=== PATIENT | female | born 1955 | race Caucasian/White ===

== ENCOUNTER 2018-07-26 00:40 | Observation (INO) | payer BC, OTHER ==
[~2018-07-26] VITALS: Ht 177.8 cm; Wt 111.1 kg
[~2018-07-26 00:40] MED LIST: DYA PO; GABA-492 PO; METO-259 PO; SIM10 PO; VALS160T20 PO
--- NOTE | 2018-07-26 00:48 | ER Report ---
History and Physical Time Seen By MD: 00:46 Hx. of Stated Complaint: around 2300 the patient started feeling SOB and states that her heart was fluttering an wont stop HPI/ROS CHIEF COMPLAINT: short of breath HISTORY OF PRESENT ILLNESS: This is a 62 year old female. She had shortness of breath start suddenly about 2330 hours. Heart racing and feeling like it is fluttering. Denies chest pain, but feels tight. Never had this in the past. No history of arrhythmias in the past. Has been told some mild valve reflux in dc st, but last echo said that there was no reflux. No lung problems. Has not been sick recently, no fevers or cough. No nausea or vomiting. Allergies: Coded Allergies: codeine (Verified Allergy, Mild, neurologic changes, amnesia, 01/02/11) Home Meds Active Scripts Pravastatin Sodium (PRAVACHOL) 20 Mg Tablet, 40 MG PO HS, #60 TAB Prov:NATHALIE ROBERTSON MD 07/26/18 Diltiazem Hcl (DILTIAZEM ER) 180 Mg Cap.er.deg, 180 MG PO DAILY, #30 Prov:NATHALIE ROBERTSON MD 07/26/18 Apixaban (ELIQUIS) 2.5 Mg Tablet, 5 MG PO BID, #60 Prov:NATHALIE ROBERTSON MD 07/26/18 Reported Medications Losartan Potassium (LOSARTAN POTASSIUM) 100 Mg Tablet, 100 MG PO HS 07/26/18 Multivitamin/Iron/Folic Acid (Centrum Adults Tablet) 18 Mg Iron-400 Mcg Tablet 07/26/18 Calcium Carb/Mag Ox/Zinc Sulf (Egjadas-Umzwisznk-Fbcl Tablet) 1 Each Tablet 07/26/18 Ubidecarenone (COQ-10) 100 Mg Capsule, 100 MG PO, CAPSULE 07/26/18 Triamterene/Hydrochlorothiazid (TRIAMTERENE-HCTZ 37.5-25 MG CP) 1 Each Capsule, 1 EACH PO, CAPSULE 07/26/18 Gabapentin (GABAPENTIN) 300 Mg Capsule, 100 MG PO TID, CAPSULE 07/26/18 Omeprazole (OMEPRAZOLE) 40 Mg Capsule.dr, 40 MG PO QDAY, CAP 07/26/18 Metformin Hcl (METFORMIN HCL) 500 Mg Tablet, 1 TAB PO BID, TAB 07/26/18 Discontinued Reported Medications Aspirin (ASPIRIN) 81 Mg Tab.chew, 81 MG PO QDAY, TAB.CHEW 07/26/18 Amlodipine Besylate (AMLODIPINE BESYLATE) 5 Mg Tablet, 1 TAB PO QDAY, TAB 07/26/18 Simvastatin (SIMVASTATIN) 20 Mg Tablet, 20 MG PO HS, TAB 07/26/18 Metoprolol Succinate (Metoprolol Succinate) 50 Mg Tab.sr.24h, 25 MG PO BID, #30 0 Refills 01/02/11 Triamterene/Hctz (Dyazide 37.5-25 Mg) 1 Ea Cap, 1 TAB PO DAILY, 0 Refills 01/02/11 Gabapentin (Neurontin) 400 Mg Capsule, 200 MG PO, 0 Refills 01/02/11 Valsartan (Diovan) 160 Mg Tablet, 0 PO, 0 Refills 01/02/11 Simvastatin (Zocor) 10 Mg Tab, 10 MG PO QHS, 0 Refills 01/02/11 Reviewed Nurses Notes: Yes Hx Smoking: No Hx Substance Use Disorder: No Hx Alcohol Use: No Constitutional Vital Sign - Last 24 Hours 07/26/18 07/26/18 07/26/18 07/26/18 00:40 00:41 00:42 01:00 Temp 98.5 Pulse ??? 127 Resp 20 B/P (MAP) 200/121 (147) 200/121 179/116 (137) Pulse Ox 94 O2 Delivery Room Air 07/26/18 07/26/18 07/26/18 07/26/18 01:10 01:30 01:40 02:00 Pulse 150 130 Resp 7 13 B/P (MAP) 139/74 (95) 122/82 (95) Pulse Ox 87 92 07/26/18 07/26/18 07/26/18 07/26/18 02:10 02:30 02:40 03:00 Pulse 138 121 Resp 12 16 B/P (MAP) 117/84 (95) 122/94 (103) Pulse Ox 93 93 07/26/18 07/26/18 03:10 03:15 Pulse 125 124 Resp 16 10 Pulse Ox 91 95 Intake and Output 07/25/18 07/25/18 07/26/18 15:01 23:01 07:01 Intake Total 1000 ml Balance 1000 ml Physical Exam General Appearance: The patient is alert. Very anxious and distress from symptoms. Eyes: Pupils are equal, round. No pallor, injection or icterus. ENT: Mucous membranes are moist. Normal oral mucosa. Posterior oropharynx is normal. Neck: Supple and non tender. Respiratory: Lungs are clear to auscultation. Tachypnea. Cardiovascular: Tachycardia at about 160-190s, does have irregularity. No murmurs, gallops or rubs. Normal capillary refill. Has bilateral ankle edema, stated as chronic. Gastrointestinal: Abdomen is soft and non tender. Nondistended. Normal active bowel sounds. Neurological: Alert and oriented x3. Skin: Warm and dry. DIFFERENTIAL DIAGNOSIS: After history and physical exam, differential diagnosis was considered for what appears to be new onset of either atrial fibrillation, SVT or atrial flutter. Will need to also look at potential causes of the new rhythm. Medical Decision Making Data Points Result Diagram: 07/26/18 0100 07/26/18 0708 Laboratory Hematology Test 07/26/18 01:00 Red Blood Count 5.29 M/uL (4.17-5.56) Mean Corpuscular Volume 84.5 fL (80.0-96.0) Mean Corpuscular Hemoglobin 28.3 pg (26.0-33.0) Mean Corpuscular Hemoglobin Concent 33.5 g/dL (32.0-36.0) Red Cell Distribution Width 14.2 % (11.5-14.5) Mean Platelet Volume 9.2 fL (7.2-11.1) Neutrophils (%) (Auto) 69.4 % (39.4-72.5) Lymphocytes (%) (Auto) 22.9 % (17.6-49.6) Monocytes (%) (Auto) 5.4 % (4.1-12.4) Eosinophils (%) (Auto) 1.5 % (0.4-6.7) Basophils (%) (Auto) 0.8 % (0.3-1.4) Nucleated RBC Relative Count (auto) 0.0 /100WBC Neutrophils # (Auto) 8.0 K/uL (2.0-7.4) Lymphocytes # (Auto) 2.7 K/uL (1.3-3.6) Monocytes # (Auto) 0.6 K/uL (0.3-1.0) Eosinophils # (Auto) 0.2 K/uL (0.0-0.5) Basophils # (Auto) 0.1 K/uL (0.0-0.1) Nucleated RBC Absolute Count (auto) 0.01 K/uL D-Dimer Quantitative (PE/DVT) 0.44 ug/ml (0-0.50) Magnesium Level 1.7 mg/dl (1.7-2.2) Total Bilirubin 0.4 mg/dl (0.2-1.3) Aspartate Amino Transf (AST/SGOT) 25 U/L (0-35) Alanine Aminotransferase (ALT/SGPT) 37 U/L (0-56) Alkaline Phosphatase 137 U/L (0-126) Troponin I 0.022 ng/ml Total Protein 8.1 g/dl (6.3-8.2) Albumin 4.6 g/dl (3.5-5.0) Chemistry Test 07/26/18 01:00 White Blood Count 11.6 k/uL (4.5-11.0) Red Blood Count 5.29 M/uL (4.17-5.56) Hemoglobin 15.0 g/dL (12.0-16.0) Hematocrit 44.7 % (34.0-47.0) Mean Corpuscular Volume 84.5 fL (80.0-96.0) Mean Corpuscular Hemoglobin 28.3 pg (26.0-33.0) Mean Corpuscular Hemoglobin Concent 33.5 g/dL (32.0-36.0) Red Cell Distribution Width 14.2 % (11.5-14.5) Platelet Count 221 K/uL (150-450) Mean Platelet Volume 9.2 fL (7.2-11.1) Neutrophils (%) (Auto) 69.4 % (39.4-72.5) Lymphocytes (%) (Auto) 22.9 % (17.6-49.6) Monocytes (%) (Auto) 5.4 % (4.1-12.4) Eosinophils (%) (Auto) 1.5 % (0.4-6.7) Basophils (%) (Auto) 0.8 % (0.3-1.4) Nucleated RBC Relative Count (auto) 0.0 /100WBC Neutrophils # (Auto) 8.0 K/uL (2.0-7.4) Lymphocytes # (Auto) 2.7 K/uL (1.3-3.6) Monocytes # (Auto) 0.6 K/uL (0.3-1.0) Eosinophils # (Auto) 0.2 K/uL (0.0-0.5) Basophils # (Auto) 0.1 K/uL (0.0-0.1) Nucleated RBC Absolute Count (auto) 0.01 K/uL D-Dimer Quantitative (PE/DVT) 0.44 ug/ml (0-0.50) Magnesium Level 1.7 mg/dl (1.7-2.2) Total Bilirubin 0.4 mg/dl (0.2-1.3) Aspartate Amino Transf (AST/SGOT) 25 U/L (0-35) Alanine Aminotransferase (ALT/SGPT) 37 U/L (0-56) Alkaline Phosphatase 137 U/L (0-126) Troponin I 0.022 ng/ml Total Protein 8.1 g/dl (6.3-8.2) Albumin 4.6 g/dl (3.5-5.0) Coagulation Test 07/26/18 01:00 D-Dimer Quantitative (PE/DVT) 0.44 ug/ml EKG/Imaging EKG Interpretation 12 lead EKG: Rhythm: Appears to be atrial fibrillation, rate 157 Imaging PORTABLE CHEST: Indication: Hypertension and dyspnea. Technique: A single frontal film was obtained. Comparison: None available. Skeletal and soft tissue structures: Intact and unremarkable. Heart and mediastinum: Within normal limits for portable technique. Lung rodriguez: Well-expanded and clear. No focal opacities. No vascular congestion. Pleural spaces: Unremarkable. Impression: No acute findings. Report Dictated By: Faustino Jaffe MD at 07/26/2018 1:43 AM ED Course/Re-evaluation Clinical Indication for ER IV: Hydration, IV Access ED Course After initial evaluation, adenosine 6 mg IV push was done to rule out SVT. She had a positive in the rhythm which then went back into a rapid ventricular rate and it is atrial fibrillation. Started diltiazem 25 mg IV push, heart rate came down to the 1:30 to 160 range. Then started to speed back up. Gave a second dose 20 mg IV push with the same results. Blood pressure has improved significantly. Patient is now much less short of breath. Troponin is negative. D-dimer is negative. Mild decrease in potassium at 3.2 but otherwise labs are unremarkable. Chest the case with our hospitalist, Dr. Pradhan, who accepted the patient for admission. Lovenox 100mg subcutaneous was given. Decision to Disposition Date: Jul 26, 2018 Decision to Disposition Time: 03:16 Depart Departure Latest Vital Signs Vital Signs Date Time Temp Pulse Resp B/P (MAP) Pulse Ox O2 Delivery O2 Flow Rate FiO2 07/26/18 03:15 124 10 95 07/26/18 03:00 122/94 (103) 07/26/18 00:42 98.5 Room Air Impression: Primary Impression: Atrial fibrillation with rapid ventricular response Condition: Condition Unchanged Disposition: Admitted from ER New Scripts Pravastatin Sodium (PRAVACHOL) 20 Mg Tablet 40 MG PO HS, #60 TAB Prov: NATHALIE ROBERTSON MD 07/26/18 Diltiazem Hcl (DILTIAZEM ER) 180 Mg Cap.er.deg 180 MG PO DAILY, #30 Prov: NATHALIE ROBERTSON MD 07/26/18 Apixaban (ELIQUIS) 2.5 Mg Tablet 5 MG PO BID, #60 Prov: NATHALIE ORBERTSON MD 07/26/18 [facility] Jul 26, 2018 00:48
[2018-07-26] MEDS ORDERED: OMEP40CA48 PO (00:54)
[2018-07-26] MEDS ORDERED: GABA-549 PO (00:54)
[2018-07-26] MEDS ORDERED: METF-450 PO (00:54)
[2018-07-26] MEDS ORDERED: CALC-52 (00:55)
[2018-07-26] MEDS ORDERED: LOSA100T75 PO (00:55)
[2018-07-26] MEDS ORDERED: ADENOSINE(*)IV SOLN 3MG/ML IVP ONE ×2 (00:55)
[2018-07-26] MEDS ORDERED: SIMV-49 PO (00:55)
[2018-07-26] MEDS ORDERED: ASPI81TA94 PO (00:55)
[2018-07-26] MEDS ORDERED: TRIA1CAP85 PO (00:55)
[2018-07-26] MEDS ORDERED: NS(*) 0.9% 1000 ML BAG 1,000 ML IV ONE (00:55)
[2018-07-26] MEDS ORDERED: UBID100C48 PO (00:55)
[2018-07-26] MEDS ORDERED: AMLO-125 PO (00:55)
[2018-07-26] MEDS ORDERED: MULT-67 (00:55)
--- NOTE | 2018-07-26 01:05 | EKG ---
FACILITY: [facility] PATIENT NAME: RODRIGUE NEWMAN : [id number] MR: [id number] V: [id number] EXAM DATE: ORDERING PHYSICIAN: DAWIT EDWARDS TECHNOLOGIST: NEERAJ Olmstead Reason : CARDIAC Blood Pressure : / mmHG Vent. Rate : 157 BPM Atrial Rate : 170 BPM P-R Int : 000 ms QRS Dur : 084 ms QT Int : 284 ms P-R-T Axes : 000 004 113 degrees QTc Int : 459 ms Atrial fibrillation No previous ECGs available Confirmed by Zach Nova ([id number]) on 07/26/2018 7:25:26 AM Referred By: Confirmed By:Zach Escobedo
[2018-07-26] MEDS ORDERED: DILTIAZEM 5 MG/ML 5ML IVPUSH IVP ONE ×2 (01:10→02:00)
[2018-07-26 01:21] LABS: PLATELET COUNT, AUTOMATED 221 K/uL (150-450)
--- NOTE | 2018-07-26 01:52 | RADIOLOGY IMAGING REPORT ---
FACILITY: [facility] [place] PATIENT NAME: Giuliana Delacruz : 1955 MR: [id number] V: [id number] EXAM DATE: ORDERING PHYSICIAN: DAWIT EDWARDS TECHNOLOGIST: Location: [facility] [place] Patient: Giuliana Delacruz : 1955 Visit/Account:[id number] Date of Sevice: 07/26/2018 PORTABLE CHEST: Indication: Hypertension and dyspnea. Technique: A single frontal film was obtained. Comparison: None available. Skeletal and soft tissue structures: Intact and unremarkable. Heart and mediastinum: Within normal limits for portable technique. Lung rodriguez: Well-expanded and clear. No focal opacities. No vascular congestion. Pleural spaces: Unremarkable. Impression: No acute findings. Report Dictated By: Faustino Jaffe MD at 07/26/2018 1:43 AM Report E-Signed By: Faustino Jaffe MD at 07/26/2018 1:46 AM WSN:[id number]
--- NOTE | 2018-07-26 02:24 | EKG ---
FACILITY: [facility] [place] PATIENT NAME: RODRIGUE NEWMAN : [id number] MR: [id number] V: [id number] EXAM DATE: ORDERING PHYSICIAN: DAWIT EDWARDS TECHNOLOGIST: NEERAJ Olmstead Reason : REPEAT EKG Blood Pressure : / mmHG Vent. Rate : 134 BPM Atrial Rate : 129 BPM P-R Int : 000 ms QRS Dur : 082 ms QT Int : 306 ms P-R-T Axes : 000 006 089 degrees QTc Int : 456 ms Atrial fibrillation When compared with ECG of 26-JUL-2018 00:54, No significant change was found Confirmed by Zach Nova ([id number]) on 07/26/2018 7:25:37 AM Referred By: Confirmed By:Zach Escobedo
[2018-07-26] MEDS ORDERED: ENOXAPARIN 100 MG/ML SYR SC ONE (03:15)
[2018-07-26 04:15] VITALS: BP 153/108
[2018-07-26] MEDS ORDERED: FLUSH 10 ML SYR IVP PRN (04:35)
[2018-07-26] MEDS ORDERED: ACETAMINOPHEN 325 MG TAB PO PRN (04:35)
[2018-07-26 05:00] VITALS: BP 132/77
--- NOTE | 2018-07-26 05:01 | History & Physical ---
History of Present Illness Chief Complaint SOB, palpitations History of Present Illness 62F presented with SOB and palpitations. PMHx significant for HTN, FAITH. Reports 12-1am had palpitations and increased SOB on waking. She does have FAITH and is treated with CPAP. [place] visiting form [place], [place] was [place] with palpitations and PVC's. Found to be in afib with RVR, some slowing with diltiazem but remained in 160's. She is hypoxic on 3L. BP stable. Planned admission to ICU for rate control; however, she converted to NSR on arrival in unit. Will admit to Med/Surg for observation and weaning of O2. History Problems: (1) Palpitations Status: Chronic Home Meds Reported Medications Losartan Potassium (LOSARTAN POTASSIUM) 100 Mg Tablet, 100 MG PO QDAY 07/26/18 Aspirin (ASPIRIN) 81 Mg Tab.chew, 81 MG PO QDAY, TAB.CHEW 07/26/18 Multivitamin/Iron/Folic Acid (Centrum Adults Tablet) 18 Mg Iron-400 Mcg Tablet 07/26/18 Calcium Carb/Mag Ox/Zinc Sulf (Oeeffde-Cksflcfdo-Bizk Tablet) 1 Each Tablet 07/26/18 Ubidecarenone (COQ-10) 100 Mg Capsule, 100 MG PO, CAPSULE 07/26/18 Triamterene/Hydrochlorothiazid (TRIAMTERENE-HCTZ 37.5-25 MG CP) 1 Each Capsule, 1 EACH PO, CAPSULE 07/26/18 Amlodipine Besylate (AMLODIPINE BESYLATE) 5 Mg Tablet, 1 TAB PO QDAY, TAB 07/26/18 Simvastatin (SIMVASTATIN) 20 Mg Tablet, 20 MG PO HS, TAB 07/26/18 Gabapentin (GABAPENTIN) 300 Mg Capsule, 100 MG PO TID, CAPSULE 07/26/18 Omeprazole (OMEPRAZOLE) 40 Mg Capsule.dr, 40 MG PO QDAY, CAP 07/26/18 Metformin Hcl (METFORMIN HCL) 500 Mg Tablet, 1 TAB PO BID, TAB 07/26/18 Discontinued Reported Medications Metoprolol Succinate (Metoprolol Succinate) 50 Mg Tab.sr.24h, 25 MG PO BID, #30 0 Refills 01/02/11 Triamterene/Hctz (Dyazide 37.5-25 Mg) 1 Ea Cap, 1 TAB PO DAILY, 0 Refills 01/02/11 Gabapentin (Neurontin) 400 Mg Capsule, 200 MG PO, 0 Refills 01/02/11 Valsartan (Diovan) 160 Mg Tablet, 0 PO, 0 Refills 01/02/11 Simvastatin (Zocor) 10 Mg Tab, 10 MG PO QHS, 0 Refills 01/02/11 Allergies: Coded Allergies: Codeine (Verified Allergy, Mild, neurologic changes, amnesia, 01/02/11) Hx Smoking: No Caffeine Intake: Coffee Caffeine/Cups Per Day: 2cpd Hx Alcohol Use: Yes (rarely) Hx Substance Use Disorder: No Review of Systems Cardiovascular: Palpitations; No Chest Pain Gastrointestinal: No Nausea, No Vomiting Exam Vital Signs Vital Signs Date Time Temp Pulse Resp B/P (MAP) Pulse Ox O2 Delivery O2 Flow Rate FiO2 07/26/18 04:15 94 Nasal Cannula 2.0 07/26/18 04:15 98.7 86 16 153/108 (123) General Appearance: Alert, Awake, No Acute Distress Neuro: No Gross deficits Cardiovascular: Other (irregularly irregular, converted to RRR) Respiratory: Clear to Auscultation (on 2L supplemental O2) GI: Abd Soft and Non-Tender Musculoskeletal: No Weakness/Pain Extremities: Soft and Non Tender, Warm, Pulses, Perfused Integumentary: Skin Intact without Lesion / Mass Medical Decision Making Data Points Result Diagram: 07/26/18 0100 07/26/18 0100 EKG / Imaging EKG Interpretation afib with RVR Monitor Interpretation: Normal Sinus Rhythm Assessment and Plan Problems: (1) Atrial fibrillation with rapid ventricular response Status: Acute Assessment & Plan: Converted with IV diltiazem on arrival to unit. Will begin PO diltiazem, recommend recheck by PCP when gets home may be able to stop diltiazem if still NSR. (2) Hypoxia Assessment & Plan: Needing 2L suspect she is mildly hypoxic at altitude and this may have led to the atrial fibrillation. Wean as tolerated. (3) HTN (hypertension) Assessment & Plan: On amlodipine, losartan, HCTZ/triamterene. Continued. Venous Thromboembolism Antithrombotics Is Pt On Any Antithrombotics?: Yes Exam Sepsis Risk: No Definite Risk SHUKLA TIERNEY BENNETT DO Jul 26, 2018 05:01
[2018-07-26 07:30] VITALS: BP 140/89
[2018-07-26] MEDS ORDERED: metFORMIN HCL 500 MG TAB PO SCH (08:00)
[2018-07-26] MEDS ORDERED: APIXABAN 2.5 MG TABLET PO SCH (09:00)
[2018-07-26] MEDS ORDERED: DILTIAZEM CD 120 MG CAPCR PO SCH (09:00)
[2018-07-26] MEDS ORDERED: ASPIRIN 81 MG ENTERIC COATED PO SCH (09:00)
[2018-07-26] MEDS ORDERED: PANTOPRAZOLE SOD 40 MG TABEC PO SCH (09:00)
[2018-07-26] MEDS ORDERED: GABAPENTIN 100 MG CAP PO SCH ×2 (09:00→21:00)
[2018-07-26] MEDS ORDERED: TRIAMTERENE/HCTZ 37.5-25MG CAPSULE PO SCH (09:00)
[2018-07-26] MEDS ORDERED: LOSARTAN POTASSIUM 50 MG TAB PO SCH (09:00)
[2018-07-26] MEDS ORDERED: amLODIPine BESYL(*) 5 MG TAB PO SCH (09:00)
[2018-07-26 10:09] VITALS: BP 145/86
[2018-07-26 11:55] VITALS: BP 150/97
[2018-07-26] MEDS ORDERED: DILT180C81 PO (13:13)
[2018-07-26] MEDS ORDERED: PRAV20TA65 PO (13:13)
[2018-07-26] MEDS ORDERED: APIX2.5T PO (13:13)
[2018-07-26] MEDS ORDERED: TRIAMTERENE/HCTZ 37.5-25MG CAPSULE PO ONE (13:15)
--- NOTE | 2018-07-26 13:25 | Hospitalist Depart ---
Discharge Summary Reason for Hosp/Final Diag: (1) Atrial fibrillation with rapid ventricular response Status: Acute Hospital Course & Plan: She presented with a feeling of SOB that woke her up. She went to the ER and was found to be in atrial fibrillation with RVR at a rate of about 160's to 190's. She converted back to a sinus rhythm after being on IV diltiazem upon and arrival to unit. She has stayed in a sinus rhythm. She was started on Diltiazem orally for rate control if she does go back into atrial fibrillation. She has been started on Eliquis for stroke prophylaxis and will be discharged on it. The patient didn't want to get an echo or TSH done now, but rather continue the work up in [place]. She has already made an appointment with a Material Planner. (2) Hypoxia Hospital Course & Plan: Initially, she was needing supplemental O2 up to 2 liters. However, this morning she is not requiring it. They are headed to a lower elevation today, so she will not need supplemental O2. (3) HTN (hypertension) Hospital Course & Plan: Chronically on amlodipine, losartan, HCTZ/triamterene. Amlodipine will be stopped and diltiazem will replace it. (4) Hyperlipemia Status: Chronic Hospital Course & Plan: Chronically on simvastatin. However, because of the interaction with diltiazem, it will be switched to pravastatin. Departure Weight (Pounds): 245 Result Diagram: 07/26/189907/26/18707 Item Value Date Time Sodium Level 142 mmol/L 07/26/18 010 Potassium Level 3.2 mmol/L L 07/26/18 010 Potassium Level 3.9 mmol/L 07/26/18 0708 Sodium Level 142 mmol/L 07/26/18 0708 Whole Blood Glucose 125 mg/DL H 07/26/18 0824 Random Glucose 150 mg/dl H 07/26/18 0708 Random Glucose 165 mg/dl H 07/26/18 0100 Magnesium Level 1.7 mg/dl 07/26/18 010 Total Bilirubin 0.4 mg/dl 07/26/18 010 Aspartate Amino Transf (AST/SGOT) 25 U/L 07/26/18 0100 Alanine Aminotransferase (ALT/SGPT) 37 U/L 07/26/18 0100 Alkaline Phosphatase 137 U/L H 07/26/18 010 Troponin I 0.022 ng/ml 07/26/18 010 Neutrophils (%) (Auto) 69.4 % 07/26/18 010 Lymphocytes (%) (Auto) 22.9 % 07/26/18 010 Monocytes (%) (Auto) 5.4 % 07/26/18 010 Eosinophils (%) (Auto) 1.5 % 07/26/18 010 Basophils (%) (Auto) 0.8 % D-Dimer Quantitative (PE/DVT) 0.44 ug/ml 07/26/18 010 Imaging 07/26/18 CXR - No acute findings. EKG Vent. Rate : 134 BPM Atrial Rate : 129 BPM P-R Int : 000 ms QRS Dur : 082 ms QT Int : 306 ms P-R-T Axes : 000 006 089 degrees QTc Int : 456 ms Atrial fibrillation When compared with ECG of 26-JUL-2018 00:54, No significant change was found Confirmed by Zach Nova ([id number]) on 07/26/2018 7:25:37 AM Vent. Rate : 157 BPM Atrial Rate : 170 BPM P-R Int : 000 ms QRS Dur : 084 ms QT Int : 284 ms P-R-T Axes : 000 004 113 degrees QTc Int : 459 ms Atrial fibrillation No previous ECGs available Confirmed by Zach Nova ([id number]) on 07/26/2018 7:25:26 AM Condition: Improved Discharge: Home Discharge Instructions Home Meds Active Scripts Pravastatin Sodium (PRAVACHOL) 20 Mg Tablet, 40 MG PO HS, #60 TAB Prov:NATHALIE ROBERTSON MD 07/26/18 Diltiazem Hcl (DILTIAZEM ER) 180 Mg Cap.er.deg, 180 MG PO DAILY, #30 Prov:NATHALIE ROBERTSON MD 07/26/18 Apixaban (ELIQUIS) 2.5 Mg Tablet, 5 MG PO BID, #60 Prov:NATHALIE ROBERTSON MD 07/26/18 Reported Medications Losartan Potassium (LOSARTAN POTASSIUM) 100 Mg Tablet, 100 MG PO HS 07/26/18 Multivitamin/Iron/Folic Acid (Centrum Adults Tablet) 18 Mg Iron-400 Mcg Tablet 07/26/18 Calcium Carb/Mag Ox/Zinc Sulf (Yrizsmh-Oizyjqtkx-Tdst Tablet) 1 Each Tablet 07/26/18 Ubidecarenone (COQ-10) 100 Mg Capsule, 100 MG PO, CAPSULE 07/26/18 Triamterene/Hydrochlorothiazid (TRIAMTERENE-HCTZ 37.5-25 MG CP) 1 Each Capsule, 1 EACH PO, CAPSULE 07/26/18 Gabapentin (GABAPENTIN) 300 Mg Capsule, 100 MG PO TID, CAPSULE 07/26/18 Omeprazole (OMEPRAZOLE) 40 Mg Capsule.dr, 40 MG PO QDAY, CAP 07/26/18 Metformin Hcl (METFORMIN HCL) 500 Mg Tablet, 1 TAB PO BID, TAB 07/26/18 Discontinued Reported Medications Aspirin (ASPIRIN) 81 Mg Tab.chew, 81 MG PO QDAY, TAB.CHEW 07/26/18 Amlodipine Besylate (AMLODIPINE BESYLATE) 5 Mg Tablet, 1 TAB PO QDAY, TAB 07/26/18 Simvastatin (SIMVASTATIN) 20 Mg Tablet, 20 MG PO HS, TAB 07/26/18 Metoprolol Succinate (Metoprolol Succinate) 50 Mg Tab.sr.24h, 25 MG PO BID, #30 0 Refills 01/02/11 Triamterene/Hctz (Dyazide 37.5-25 Mg) 1 Ea Cap, 1 TAB PO DAILY, 0 Refills 01/02/11 Gabapentin (Neurontin) 400 Mg Capsule, 200 MG PO, 0 Refills 01/02/11 Valsartan (Diovan) 160 Mg Tablet, 0 PO, 0 Refills 01/02/11 Simvastatin (Zocor) 10 Mg Tab, 10 MG PO QHS, 0 Refills 01/02/11 Diet: Diabetic Activity: As Tolerated Special Instructions: Go to the ER for sustained fast heart rate, chest pain or shortness of breath. Bring a copy of the discharge summary, labs and radiologic studies with you upcoming appointment with a Material Planner. Venous Thromboembolism Antithrombotics Is Pt On Any Antithrombotics?: Yes NATHALIE ROBRETSON MD Jul 26, 2018 13:25
--- NOTE | 2018-07-26 13:27 | Medical Nutrition Therapy ---
Nutrition Anthropometrics Height (Inches): 70.00 Height (Calculated Centimeters: 177.731468 Weight (Pounds): 245 Weight (Calculated Kilograms): 111.130 BMI: 35.2 Atul Nutrition Score: Adequate Atul Nutrition Risk Score: 22 Dietary Referral Nutrition Risk Factors: Nutrition Risk Comment: Physical Findings Physical Appearance: Obese BMI 30-39 Skin Appearance Skin Appearance: Edema Edema Location Modifier: Both Edema Location: Lower Extremity Type of Edema: Degree of Edema: 1+ Gastrointestinal Symptoms GI Symtoms: Tube Present: Bowel Sounds: Recent Bowel Pattern: Stool Characteristics: Nutrition/Food History Good Nutritional Diagnosis Nutritional Risk Acuity 4: Good Appetite Nutritional Acuity: 4-Low Energy Requirement: 2268 (MSJ (AF1.3)) Protein Requirement: 111 (1g/kg) Fluid Requirement: 2268 (1mL/kcal) Nutrition Monitoring & Eval Nutrition Follow-Up: Good Intake RD Patient Assessment Time: [address] Assessment Type: RD Assessment Patient Nutrition Acuity: 4-Low Follow Up Date: Aug 02, 2018 Nutritional Comment: 07/26/18-Reviewed pt medical history. Pertinent for HTN, diabetes. Pt is eating well. Discussed low sodium diet and rationale. Discussed foods low in sodium. Provided a handout on low sodium diet. RD will remain available prn.SYBIL PARKER Jul 26, 2018 13:27
== END 2018-07-26 13:14 | disposition home or self-care (01) ==
LOC: ER 00:57 → ICU 03:27 → INTOOBSV 03:27 → ICU 03:28
PROVIDERS: ADMIT Internal Medicine; ATTEND Internal Medicine
DX: I48.2 Chronic atrial fibrillation (principal); Z79.01 Long term (current) use of anticoagulants; I10 Essential (primary) hypertension; R09.02 Hypoxemia
CPT/HCPCS: 36416; 71045; 82948; 83735; 84484; 85025; 85379; 93005; 96361; 96372; 96374; 96375; 99284; G0378; J0153; J1650; J3490; J7030; 82040; 82247; 82310; 82374; 82435; 82565; 82947; 84075; 84132; 84155; 84295; 84450; 84460; 84520